=== PATIENT | female | born 1955 | race Caucasian/White ===

== ENCOUNTER → 2016-12-27 | Outpatient (REF) | payer MEDICARE ==
[~2016-12-27] MED LIST: /AMLO25TA PO; ABIL5TAB PO; LISI5TAB PO; TRAZ50TA2 PO
== END ==
LOC: M SFHCWAGY 09:10
PROVIDERS: ATTEND Nurse Practitioner Family
DX: Z12.4 Encounter for screening for malignant neoplasm of cervix (principal); B37.3 Candidiasis of vulva and vagina

== ENCOUNTER → 2018-01-08 | Outpatient (CLI) | payer MEDICARE, MEDICAID | LOC: M WHC 08:50 | DX: R92.2 Inconclusive mammogram (principal); Z01.419 Encounter for gynecological examination (general) (routine) without abnormal findings (principal) | CPT/HCPCS: 77067 ==

== ENCOUNTER → 2020-10-21 | Outpatient (CLI) | payer MEDICARE ==
[~2020-10-21] MED LIST changes: -/AMLO25TA PO; +NORV2TAB PO
--- NOTE | 2020-10-21 15:41 | REPMRS ---
Patient History The patient states she had a clinical breast exam in October 2020. Family history of breast cancer at age 50 or over in maternal aunt. No Hormone Replacement Therapy Patient states no breast complaints today. Patient has signed MRS History Sheet. Digital Woman Screen Mammo: October 21, 2020 - Exam #: [id number] Bilateral CC and MLO view(s) were taken. Technologist: Billie Alba, Technologist Prior study comparison: January 08, 2018, bilateral digital woman screen mammo performed at [facility]. December 27, 2016, digital woman screen mammo performed at [facility]. November 19, 2015, digital woman screen mammo performed at [facility]. FINDINGS: There are scattered fibroglandular densities. The Volpara volumetric breast density category is:B. Stable nodular densities are again noted in the left breast. Previously noted finding of a spiculated lesion at 12 o'clock in the right breast not seen today. There has been no other change in the appearance of the mammogram from the prior studies. There is a mild amount of scattered fibroglandular density which is fairly symmetric. There is no interval development of dominant mass, architectural distortion, or grouped microcalcification suggestive of malignancy. 3-D tomosynthesis shows no additional findings. Assessment: BI-RADS/ACR category 2 mammogram. Benign Findings. Recommendation Routine screening mammogram of both breasts in 1 year (for women over age 40). This patient's [facility] Lifetime Breast Cancer Risk is estimated at 12.2 %. This mammogram was interpreted with the aid of an FDA-approved computer-aided dectection system. Electronically Signed By: Marcell Roger MD 10/21/20 [id number]
== END ==
LOC: M WHC 13:48
PROVIDERS: ATTEND Nurse Practitioner Women's Health
DX: Z12.31 Encounter for screening mammogram for malignant neoplasm of breast (principal); Z12.4 Encounter for screening for malignant neoplasm of cervix; N63.20 Unspecified lump in the left breast, unspecified quadrant
CPT/HCPCS: 77063; 77067; 87624; G0123; G0463

== ENCOUNTER → 2020-10-21 | Outpatient (REF) | payer MEDICARE, MEDICAID | LOC: M SFHCWAGY 17:16 | PROVIDERS: ATTEND Nurse Practitioner Women's Health | DX: Z12.4 Encounter for screening for malignant neoplasm of cervix (principal) ==

== ENCOUNTER → 2022-01-14 | Outpatient (CLI) | payer MEDICARE | LOC: M WHC 10:38 | PROVIDERS: ATTEND Physician Assistant Medical | DX: Z12.31 Encounter for screening mammogram for malignant neoplasm of breast (principal) ==

== ENCOUNTER 2023-09-04 11:01 | Emergency (ER) | payer OTHER ==
[~2023-09-04] VITALS: Ht 165.1 cm; Wt 117.5 kg
[2023-09-04] MEDS ORDERED: PRED20TA PO (11:26)
[2023-09-04] MEDS ORDERED: FURO20TA2 PO (11:26)
[2023-09-04] MEDS ORDERED: CEFD1CAP9 PO (11:26)
[2023-09-04] MEDS ORDERED: DILT120C89 PO (11:26)
[2023-09-04] MEDS ORDERED: DIGO0.253 PO (11:26)
[2023-09-04] MEDS ORDERED: ELIQ5TAB PO (11:26)
[2023-09-04] MEDS ORDERED: METO1TAB33 PO (11:26)
[2023-09-04] MEDS ORDERED: SPIR-10 PO (11:26)
[2023-09-04 11:37] LABS: HEMATOCRIT 38.4 % (36.0-47.0); HEMOGLOBIN 11.3 g/dl (12.0-15.5); MEAN CORPUSCULAR HEMOGLOBIN 21.9 pg (27.0-33.0); MEAN CORPUSCULAR HGB CONC 29.4 g/dl (32.0-36.5); MEAN CORPUSCULAR VOLUME 74.4 fl (80.0-96.0); PLATELET COUNT, AUTOMATED 361 10^3/uL (150-450); RED BLOOD COUNT 5.16 10^6/uL (4.00-5.40); WHITE BLOOD COUNT 15.8 10^3/uL (4.0-10.0)
[2023-09-04] MEDS: methylPREDNISolone 125MG 2ML VIAL IV ONE (11:42)
[2023-09-04] MEDS: NS 1,000 ML IV SCH (11:42)
[2023-09-04] MEDS: FAMOTIDINE IV BAG 20 MG in IV 1 EA IV ONE (11:50)
[2023-09-04 11:56] LABS: ERYTHROCYTE SEDIMENTATION RATE 72 mm/hr (0-30)
[2023-09-04 11:59] LABS: HCG, SERUM QUALITATIVE NEGATIVE (NEGATIVE)
[2023-09-04 12:00] LABS: ALBUMIN 2.1 G/DL (3.2-5.2); ALKALINE PHOSPHATASE 71 U/L (46-116); ALT/SGPT 20 U/L (7.0-40); AST/SGOT 37 U/L (<34); BILIRUBIN,DIRECT 0.1 MG/DL (<0.4); BILIRUBIN,TOTAL 0.4 MG/DL (0.3-1.2); BLOOD UREA NITROGEN 21 MG/DL (9-23); CALCIUM LEVEL 7.8 MG/DL (8.3-10.6); CARBON DIOXIDE LEVEL 27 MMOL/L (20-31); CHLORIDE LEVEL 103 MMOL/L (98-107); COMPLEMENT C4 33.1 MG/DL (12-36); CREATININE FOR GFR 0.72 MG/DL (0.55-1.30); DIGOXIN LEVEL 1.7 NG/ML (0.8-2.0); GLOMERULAR FILTRATION RATE > 60.0 (>45); GLUCOSE, FASTING 213 MG/DL (74-106); POTASSIUM SERUM 4.9 MMOL/L (3.5-5.1); SODIUM LEVEL 134 MMOL/L (136-145); TOTAL PROTEIN 5.8 G/DL (5.7-8.2)
[2023-09-04 12:15] LABS: ATYPICAL LYMPH 5 % (0-5); EOSINOPHILS 4 % (0-3); LYMPHOCYTES 6 % (16-44); NEUTROPHILS 78 % (28-66)
[2023-09-04 12:16] LABS: ANISOCYTOSIS 2+
[2023-09-04 12:17] LABS: HYPOCHROMASIA 2+; MICROCYTOSIS 2+
[2023-09-04 12:18] LABS: PLATELET ESTIMATE NORMAL (NORMAL)
[2023-09-04 13:01] LABS: PROCALCITONIN 0.14 ng/ml
[2023-09-04] MEDS: APIXABAN 5 MG TAB (ELIQUIS) PO ONE (16:47)
[2023-09-04 18:40] VITALS: BP 192/80; TEMP 97.3; O2SAT 97
[2023-09-06 14:17] LABS: C1 ESTER INHIB. NON FUNCTIONAL 37 mg/dL (21-39)
== END 2023-09-04 18:45 | disposition short-term general hospital (02) ==
LOC: M ED 11:01 → EDBD 11:01 → M ED 18:45
DX: L51.1 Stevens-Johnson syndrome (principal); L27.0 Generalized skin eruption due to drugs and medicaments taken internally; L95.9 Vasculitis limited to the skin, unspecified; I51.7 Cardiomegaly; I10 Essential (primary) hypertension; F10.10 Alcohol abuse, uncomplicated; F41.9 Anxiety disorder, unspecified; Z91.048 Other nonmedicinal substance allergy status; Z90.89 Acquired absence of other organs; Z79.01 Long term (current) use of anticoagulants; Z79.811 Long term (current) use of aromatase inhibitors; Z79.52 Long term (current) use of systemic steroids; Z79.899 Other long term (current) drug therapy
CPT/HCPCS: 71045; 80048; 80076; 80162; 83519; 84145; 84703; 85025; 85280; 85652; 86140; 86160; 86161; 86850; 86900; 86901; 87635; 93005; 93041; 94760; 96374; 96375; 99285; J2919